=== PATIENT | male | born 1955 | race Caucasian/White ===

== ENCOUNTER 2017-10-09 06:57 | Day surgery (SDC) | payer BC ==
[2017-10-09] MEDS ORDERED: ceFAZolin 2 GM/DEXTROSE 100 ML IV ONE (07:13)
[2017-10-09] MEDS ORDERED: LR 1,000 ML IV ONE (07:14)
--- NOTE | 2017-10-09 08:15 | PDGENHP ---
History and Physical - Chief Complaint bilateral inguinal hernias - History of Present Illness 62yo male with symptomatic inguinal hernias. Here for repair History Information - Allergies/Home Medication List Allergies/Adverse Reactions: lactose Allergy (Verified 10/09/17 07:29) Home Medications: Oracea 10/09/17 [Last Taken 10/08/17] Triamterene 10/09/17 [Last Taken 10/08/17] I have personally reviewed and updated: family history, social history - Social History Smoking Status: Never smoked Review of Systems Review of Systems: ROS: 10pt was reviewed & negative except for what was stated in HPI & below Physical Exam Physical Exam: Temp Pulse Resp BP Pulse Ox 36.7 C 69 19 146/85 H 96 10/09/17 07:15 10/09/17 07:15 10/09/17 07:15 10/09/17 07:15 10/09/17 07:15 Constitutional: no apparent distress, appears nourished, not in pain Eyes: PERRL, anicteric sclera, EOMI Ears, Nose, Mouth, Throat: moist mucous membranes, hearing normal, ears appear normal, no oral mucosal ulcers Cardiovascular: regular rate and rhythym, no murmur, rub, or gallop, No edema Respiratory: no respiratory distress, no rales or rhonchi, clear to auscultation Gastrointestinal: normoactive bowel sounds, soft, non-tender abdomen, no palpable masses Genitourinary: no bladder fullness, no bladder tenderness Skin: warm, normal color, no rashes or abrasions, no fluctuance, no induration, No mottled Musculoskeletal: full muscle strength, no muscle tenderness, normal joint ROM, no joint effusions Psychiatric: interacting appropriately, not anxious, not encephalopathic, thought process linear Lymph, Heme, Immunologic: no cervical LAD, no supraclavicular LAD Assessment & Plan Assessment: barbara iguinal hernias Plan: to OR for repair, RBA discussed
[2017-10-09] MEDS ORDERED: MIDAZOLAM 2 MG/2 ML VIAL IVP ONE (08:20)
--- NOTE | 2017-10-09 08:20 | PDANEPAE ---
ANE History of Present Illness inguinal hernia ANE Past Medical History - Cardiovascular History Hx Hypertension: Yes Hx Arrhythmias: No Hx Chest Pain: No Hx Coronary Artery / Peripheral Vascular Disease: No Hx CHF / Valvular Disease: No Hx Palpitations: No - Pulmonary History Hx COPD: No Hx Asthma/Reactive Airway Disease: No Hx Recent Upper Respiratory Infection: No Hx Oxygen in Use at Home: No Hx Sleep Apnea: Yes Sleep Apnea Screening Result - Last Documented: Positive - Neurologic History Hx Cerebrovascular Accident: No Hx Seizures: No Hx Dementia: No - Endocrine History Hx Diabetes: No - Renal History Hx Renal Disorders: No - Liver History Hx Hepatic Disorders: No - Neurological & Psychiatric Hx Hx Neurological and Psychiatric Disorders: No - Cancer History Hx Cancer: No - Congenital Disorder History Hx Congenital Disorders: No - GI History Hx Gastrointestinal Disorders: No Gastrointestinal History Comment: dysphagia, difficulty swallowing pills - Other Health History Other Health History: OCCULAR ROSACEA - Chronic Pain History Chronic Pain: No - Surgical History Prior Surgeries: NEVER HAD SURGERY OR ANESTHESIA ANE Review of Systems Review of Systems: - Exercise capacity METS (RN): 6 METS ANE Patient History - Allergies Allergies/Adverse Reactions: lactose Allergy (Verified 10/09/17 07:29) - Home Medications Home medications: home medication list seen and reviewed Home Medications: Oracea 10/09/17 [Last Taken 10/08/17] Triamterene 10/09/17 [Last Taken 10/08/17] - NPO status NPO Since - Liquids (Date): 10/08/17 NPO Since - Liquids (Time): 23:45 NPO Since - Solids (Date): 10/08/17 NPO Since - Solids (Time): 21:00 - Smoking Hx Smoking Status: Never smoked - Family Anes Hx Family Hx Anesthesia Complications: NA ANE Labs/Vital Signs - Vital Signs Blood Pressure: 146/85 Heart Rate: 69 Respiratory Rate: 19 O2 Sat (%): 96 Height: 167.64 cm Weight: 70.307 kg ANE Physical Exam - Airway Neck exam: FROM Mallampati Score: Class 3 Mouth exam: normal dental/mouth exam - Pulmonary Pulmonary: no respiratory distress, no rales or rhonchi - Cardiovascular Cardiovascular: regular rate and rhythym, no murmur, rub, or gallop - ASA Status ASA Status: II ANE Anesthesia Plan Anesthesia Plan: general endotracheal anesthesia
[2017-10-09] MEDS ORDERED: SCOPOLAMINE HYDROBROMIDE 1 MG/3 DAYS PATCH TD ONE (08:23)
[2017-10-09] MEDS ORDERED: PROPOFOL 200 MG/20 ML VIAL ONE (08:32)
[2017-10-09] MEDS ORDERED: fentaNYL 100 MCG/2 ML INJ ONE ×2 (08:32→11:04)
[2017-10-09] MEDS ORDERED: BUPIVACAINE/EPI 0.5% 30 ML SDV ONE (08:32)
[2017-10-09] MEDS ORDERED: LIDOCAINE 2% 5 ML SDV ONE (08:33)
[2017-10-09] MEDS ORDERED: ONDANSETRON 4 MG/2 ML VIAL ONE (08:33)
[2017-10-09] MEDS ORDERED: NEOSTIGMINE METHYLSULFATE 5 MG/5 ML SYR ONE (08:33)
[2017-10-09] MEDS ORDERED: ROCURONIUM 50 MG/5 ML VIAL ONE ×2 (08:33→10:09)
[2017-10-09] MEDS ORDERED: DEXAMETHASONE 4 MG/ML VIAL ONE ×2 (08:33→09:11)
[2017-10-09] MEDS ORDERED: GLYCOPYRROLATE 0.2 MG/1 ML VIAL ONE ×2 (08:33)
[2017-10-09] MEDS ORDERED: PROMETHAZINE HCL 25 MG/ML INJ IVP PRN (09:41)
[2017-10-09] MEDS ORDERED: HYDROmorphONE/DILAUDID 1 MG/ML INJ IVP PRN (09:41)
[2017-10-09] MEDS ORDERED: fentaNYL 100 MCG/2 ML INJ IVP PRN (09:41)
[2017-10-09] MEDS ORDERED: NALOXONE HCL 0.4 MG/ML INJ IVP PRN (09:41)
[2017-10-09] MEDS ORDERED: ONDANSETRON 4 MG/2 ML VIAL IVP PRN (09:41)
--- NOTE | 2017-10-09 10:44 | POSTOPPROG ---
Post Op Note Date of Operation: 10/09/17 Surgeon: Rajat Lauren Child Care Lead Teacher: HARMAN Rome Anesthesiologist: Trino Anesthesia: GET(General Endotracheal) Pre-op Diagnosis: bilateral inguinal hernias Post-op Diagnosis: same Procedure: robot assisted bilateral inguinal hernia repair with mesh Findings: large L direct, mod R indir and dir Inf/Abcess present in the surg proc area at time of surgery?: No EBL: Minimal
--- NOTE | 2017-10-09 10:57 | POSTANESTH ---
Post Anesthetic Evaluation Cardiovascular Status: Normal, Stable Respiratory Status: Normal, Stable Level of Consciousness/Mental Status: Alert and Oriented Pain Control: Adequate, Prn Tx Ordered Nausea/Vomiting Control: Adequate, Prn Tx Ordered Complications Possibly Related to Anesthesia: None Noted
[2017-10-09 13:55] VITALS: BP 130/76
--- NOTE | 2017-10-09 15:42 | GOP ---
[f rep st] OPERATIVE REPORT DATE OF OPERATION: 10/09/2017 SURGEON: Rajat Lauren MD HANGER OFF: Radha Cintron, certified surgical bilingual administrative assistant. ANESTHESIA: General endotracheal. ANESTHESIOLOGIST: Dr. Jameson. PREOPERATIVE DIAGNOSIS: Bilateral inguinal hernias. POSTOPERATIVE DIAGNOSIS: Bilateral inguinal hernias. PROCEDURE PERFORMED: Robotic assisted laparoscopic inguinal hernia repair with Phasix mesh. FINDINGS: Large left direct hernia. Moderate right indirect and direct pantaloon hernia. ESTIMATED BLOOD LOSS: 5 cc. DESCRIPTION OF PROCEDURE: The patient was greeted in the preoperative suite. Once again, risks, diallo efits, and alternatives were discussed. Consent was signed. He was then brought back to the operati ve suite, placed on the OR table in left supine position. After all anesthesia machines, including S CDs were on and functioning, a [employer] time-out was performed. After successful in duction of general anesthesia, the patient's abdomen was prepped and draped in typical sterile fashio n. I commenced the procedure by making the supraumbilical 8 mm incision through which the Veress needle was passed. I achieved pneumoperitoneum to 15 mmHg CO2, which was well tolerated by the patient. Th rough this, I inserted an 8 mm trocar. Once successfully in the abdomen, I inserted 2 additional 8 m m trocars, 1 in the right and 1 in the left upper quadrant, both under direct visualization. Once bal ccessfully inside, I placed the patient in gentle Trendelenburg position and the robot was successful ly docked. Upon visualization, the patient had bilateral hernias consistent with his preoperative ex am. I turned my attention first towards the patient's left side. I made a peritoneal defect extending fr om the ASIS all the way medial to the pubic tubercle. I dissected this down to Luiz ligament infer iorly, as well as the extent of the dissection laterally. I successfully reduced the hernia, as well as skeletonized the cord structures, and removed a moderate-sized cord lipoma. Once the dissection was taken down to the visceral sac, a piece of Phasix mesh was brought into the field. It was trimme d to 15 x 10 cm. It was attached to Luiz ligament inferiorly, as well as on either side of the inf erior epigastric vessels with 2-0 Vicryl stitch. The peritoneal defect was then closed with a runnin g 2 0 V-Loc suture. I turned my attention then towards the right side. The patient had 2 defects apparent. In the same fashion, made a peritoneal flap from the extent of the ASIS all the way to Luiz's ligament. The pa tient had a small direct hernia, as well as a moderate-sized indirect hernia. Both of these were red uced. After successful reduction, I once again skeletonized the cord structures. The patient had a moderate-sized cord lipoma on this side as well. After skeletonization, I brought in an appropriate size 15 x 10 piece of Phasix mesh. I attached it to Luiz's ligament inferiorly, as well as on eith er side of the inferior epigastric vessels, noting sufficient overlap of all hernia sites. The perit rodriguez defect was closed in the same fashion. Once the defect was closed, I inspected it. I found no other significant abdominal pathology. Pneumoperitoneum was evacuated. The robot was undocked. I closed the skin with Monocryl. Dermabond was my bandage. Patient was then extubated in the operative suite and taken to the PACU in satisfac tory condition. COUNTS: All counts were reported as correct x2. /[id number]/MODL
[2017-10-10] MEDS ORDERED: PATCH REMOVAL 1 EA PATCH TD ONE (08:25)
== END 2017-10-09 14:11 | disposition home or self-care (01) ==
LOC: FSGY 06:57
PROVIDERS: ATTEND Surgery
PROC: 8E0W4CZ Robotic Assisted Procedure of Trunk Region, Percutaneous Endoscopic Approach (ICD-10-PCS; principal; 2017-10-09 08:30)
PROC: 0YUA4JZ Supplement Bilateral Inguinal Region with Synthetic Substitute, Percutaneous Endoscopic Approach (ICD-10-PCS; principal; 2017-10-09 08:30)
PROC: 0VB Male Reproductive System, Excision (ICD-10-PCS; principal; 2017-10-09 08:30)
DX: K40.20 Bilateral inguinal hernia, without obstruction or gangrene, not specified as recurrent (principal); Z91.011 Allergy to milk products
CPT/HCPCS: C1781; J0690; J1100; J2250; J2405; J2704; J2710; J3010